=== PATIENT | female | born 1975 | race African-American/Black ===

== ENCOUNTER 2017-05-31 20:56 | Inpatient (IN) | payer MEDICAID ==
[~2017-05-31] VITALS: Ht 160 cm; Wt 148.3 kg
[~2017-05-31 20:56] MED LIST: CLON0.1T14 PO; COR3 PO; LISI-653 PO; TIOT18CA3 INH
[2017-05-31] MEDS ORDERED: METHYLPREDNISOLONE SOD SUCC 125 MG/2 ML VIAL IV STA (21:30)
[2017-05-31] MEDS ORDERED: CLONIDINE 0.2MG TABLET PO ONE (21:30)
[2017-05-31] MEDS ORDERED: IPRATROPIUM BROMIDE (0.02%) 0.5MG/2.5ML NEB HHN STA (21:30)
[2017-05-31] MEDS ORDERED: ASPIRIN 81MG TABLET PO STA (21:30)
[2017-05-31] MEDS ORDERED: FUROSEMIDE 40MG/4ML VIAL IV STA (21:30)
[2017-05-31] MEDS ORDERED: NITROGLYCERIN OINT 1GM/INCH UDPKT TD STA (21:30)
[2017-05-31] MEDS ORDERED: ALBUTEROL (0.083%) 2.5MG/3ML NEB HHN STA (21:30)
[2017-05-31 21:59] LABS: EOSINOPHILS % 1.7 % (0.0-5.0); HEMATOCRIT. 37.8 % (36.0-48.0); HEMOGLOBIN. 13.2 g/dL (12.0-16.0); LYMPHOCYTES % 27.9 % (20.0-50.0); MEAN CORPUSCULAR HEMOGLOBIN 29.7 pg (28.0-32.0); MEAN CORPUSCULAR VOLUME 85.1 fL (81.0-99.0); MEAN PLATELET VOLUME 9.5 fl (7.4-10.4); MONOCYTES % 6.8 % (2.0-8.0); NEUTROPHILS % 62.6 % (40.0-76.0); PLATELET 245 x1000/uL (130-400); RED BLOOD CELL COUNT 4.44 mill/uL (4.2-5.4)
[2017-05-31] MEDS ORDERED: ALBUTEROL (0.5%) 2.5MG/0.5ML NEB HHN ONE (22:02)
[2017-05-31 22:07] LABS: PARTIAL THROMBOPLASTIN TIME 25.4 sec (23.4-31.0); PROTHROMBIN TIME 10.3 sec (9.4-11.6)
[2017-05-31 22:13] LABS: CARBON DIOXIDE 26 mEq/L (21-32); CHLORIDE 106 mEq/L (98-107); TROPONIN I 0.04 ng/mL (0.00-0.04)
[2017-05-31 22:47] LABS: HCG SCREEN NEGATIVE
[2017-05-31] MEDS ORDERED: HYDROCODONE/ACETAMINOPHEN 5/325MG TABLET PO ONE (23:45)
[2017-06-01] VITALS (7 sets, daily range): BP systolic 118–198; BP diastolic 70–99
[2017-06-01] MEDS ORDERED: CLONIDINE 0.1MG TABLET PO PRN (04:00)
[2017-06-01] MEDS ORDERED: ONDANSETRON HCL 4MG/2ML VIAL IV PRN (04:00)
[2017-06-01] MEDS ORDERED: MAGNESIUM/ALUMINUM HYDROXIDE/SIMETHICONE 30ML UDC PO PRN (04:00)
[2017-06-01] MEDS ORDERED: GUAIFENESIN 200MG/10ML SUGAR FREE UDC PO PRN (04:00)
[2017-06-01] MEDS ORDERED: ACETAMINOPHEN 325MG TABLET PO PRN (04:00)
[2017-06-01] MEDS ORDERED: DIPHENHYDRAMINE 50MG/ML VIAL IV PRN (04:00)
[2017-06-01] MEDS: CLONIDINE 0.1MG TABLET PO SCH ×3 (06:13→21:32)
[2017-06-01] MEDS: FUROSEMIDE 40MG/4ML VIAL IVP SCH ×2 (06:16→17:53)
[2017-06-01] MEDS: HYDROCODONE/ACETAMINOPHEN 5/325MG TABLET PO PRN ×3 (06:16→20:15)
[2017-06-01] MEDS: SODIUM CHLORIDE 0.9% INJ 3ML FLUSH IVF SCH ×3 (06:16→21:32)
[2017-06-01] MEDS: POTASSIUM CHLORIDE 20MEQ TABLET SR PO SCH (09:03)
[2017-06-01] MEDS: AMLODIPINE 5MG TABLET PO SCH (09:03)
[2017-06-01] MEDS: CARVEDILOL 6.25 MG TABLET PO SCH ×2 (09:03→21:31)
[2017-06-01] MEDS: BENAZEPRIL 20MG TABLET PO SCH (09:04)
[2017-06-01] MEDS: ENOXAPARIN 40MG/0.4ML SYR SUBCUT SCH ×2 (09:04→21:33)
[2017-06-01] MEDS: BUDESONIDE 0.5MG/2ML NEB HHN SCH ×2 (09:47→22:21)
[2017-06-01] MEDS: IPRATROPIUM/ALBUTEROL 0.5-3(2.5)MG/3ML NEB HHN PRN ×2 (09:47→22:22)
[2017-06-01 10:38] LABS: *AMPHETAMINES SCREEN URINE NEGATIVE (NEGATIVE); *BARBITURATES SCREEN URINE NEGATIVE (NEGATIVE); *BENZODIAZEPINES SCREEN URINE NEGATIVE (NEGATIVE); *COCAINE SCREEN URINE NEGATIVE (NEGATIVE); METHADONE URINE SCREEN NEGATIVE (NEGATIVE); PHENCYCLIDINE URINE SCREEN NEGATIVE (NEGATIVE)
[2017-06-01 10:56] LABS: CANNABINOID URINE SCREEN PRESUMTIVE POSITIVE (NEGATIVE); OPIATES URINE SCREEN PRESUMTIVE POSITIVE (NEGATIVE)
[2017-06-01] MEDS ORDERED: INFLUENZA VIRUS VACCINE 0.5ML SYR IM ONE (12:00)
[2017-06-02] VITALS: BP 135/82
[2017-06-02 03:54] VITALS: BP 142/82
[2017-06-02] MEDS: HYDROCODONE/ACETAMINOPHEN 5/325MG TABLET PO PRN ×2 (03:54→11:03)
[2017-06-02] MEDS: FUROSEMIDE 40MG/4ML VIAL IVP SCH ×2 (06:20→17:55)
[2017-06-02] MEDS: SODIUM CHLORIDE 0.9% INJ 3ML FLUSH IVF SCH ×2 (06:20→14:45)
[2017-06-02] MEDS: CLONIDINE 0.1MG TABLET PO SCH ×2 (06:21→14:44)
[2017-06-02 07:33] LABS: CARBON DIOXIDE 29 mEq/L (21-32); CHLORIDE 99 mEq/L (98-107)
[2017-06-02 08:00] VITALS: BP 161/89
[2017-06-02] MEDS: BUDESONIDE 0.5MG/2ML NEB HHN SCH (09:12)
[2017-06-02] MEDS: POTASSIUM CHLORIDE 20MEQ TABLET SR PO SCH (09:12)
[2017-06-02] MEDS: CARVEDILOL 6.25 MG TABLET PO SCH (09:13)
[2017-06-02] MEDS: BENAZEPRIL 20MG TABLET PO SCH (09:13)
[2017-06-02] MEDS: ENOXAPARIN 40MG/0.4ML SYR SUBCUT SCH (09:14)
[2017-06-02] MEDS: AMLODIPINE 5MG TABLET PO SCH (09:14)
[2017-06-02 12:00] VITALS: BP 149/80
[2017-06-02 16:00] VITALS: BP 146/92
[2017-06-02] MEDS ORDERED: MONTELUKAST SODIUM 10MG TABLET PO SCH (21:00)
[2017-06-02] MEDS ORDERED: FAMOTIDINE 20MG/2ML VIAL IV SCH (21:00)
== END 2017-06-02 18:40 | disposition home or self-care (01) | DRG 133 ==
LOC: ER 20:56 → 5WST 06-01 00:08 → EDBEDREQ 06-01 00:13 → EDBEDREQTM 06-01 00:13 → ENRESERV 06-01 01:24
PROVIDERS: ADMIT Internal Medicine; ATTEND Internal Medicine
DX: J96.00 Acute respiratory failure, unspecified whether with hypoxia or hypercapnia (principal); I50.23 Acute on chronic systolic (congestive) heart failure; Z68.43 Body mass index [BMI] 50.0-59.9, adult; E66.01 Morbid (severe) obesity due to excess calories; I42.9 Cardiomyopathy, unspecified; I11.0 Hypertensive heart disease with heart failure; F12.90 Cannabis use, unspecified, uncomplicated; J40 Bronchitis, not specified as acute or chronic; M19.90 Unspecified osteoarthritis, unspecified site; M79.89 Other specified soft tissue disorders; Z79.899 Other long term (current) drug therapy; Z90.710 Acquired absence of both cervix and uterus
CPT/HCPCS: 36415; 71010; 80048; 80053; 80305; 83605; 83735; 83880; 84484; 84703; 85025; 85610; 85730; 87040; 90686; 93005; 93970; 94640; 94644; 96374; 96375; 99285; J1650; J1940; J2930; J7611; J7620; J7626

== ENCOUNTER 2017-06-21 20:04 | Emergency (ER) | payer MEDICAID, OTHER ==
[~2017-06-21] VITALS: Ht 160 cm; Wt 134.0 kg
[2017-06-21] MEDS ORDERED: HYDROCODONE/ACETAMINOPHEN 5/325MG TABLET PO ONE (22:30)
[2017-06-21 23:08] VITALS: BP 147/105
== END 2017-06-21 23:10 | disposition home or self-care (01) ==
LOC: ER 22:45
DX: I50.9 Heart failure, unspecified (principal); I11.0 Hypertensive heart disease with heart failure; E66.01 Morbid (severe) obesity due to excess calories; M79.89 Other specified soft tissue disorders; F17.200 Nicotine dependence, unspecified, uncomplicated; F12.10 Cannabis abuse, uncomplicated; Z90.710 Acquired absence of both cervix and uterus
CPT/HCPCS: 93005; 99283; Z7610